=== PATIENT | male | born 2000 | race Caucasian/White ===

== ENCOUNTER 2023-08-10 10:45 | Emergency (ER) | payer SELFPAY ==
[2023-08-10 10:52] VITALS: BP 119/83; PULSE 86; RESP 20; TEMP 37.4; O2SAT 99
--- NOTE | 2023-08-10 11:31 | ED.URI ---
HPI - URI/Sore Throat General Chief Complaint: Upper Respiratory Infection Stated Complaint: needs COVID test Time Seen by Provider: 08/10/23 11:31 Source: patient, RN notes reviewed and old records reviewed Mode of arrival: ambulatory Limitations: no limitations History of Present Illness HPI Narrative: 23-year-old male who presents to [facility] with complaints of dry cough, fever 100.1F highest, sore throat since last night. Patient reports he did 2 COVID testing at home one was positive, one was negative with known exposure to COVID. Patient reports that he has not taken any OTC medications for his symptoms MD elicited complaint: cough and sore throat Onset (ago): day(s) (1) Able to tolerate fluids by mouth: Yes Treatments prior to arrival: none Related Data Allergies Allergy/AdvReac Type Severity Reaction Status Date / Time No Known Allergies Allergy Verified 08/10/23 11:01 Review of Systems Review of Systems: CONSTITUTIONAL:Reports malaise, chills, sweats, or fever. EYES: Denies visual changes, redness, or discharge. ENT: Reports rhinorrhea, congestion, no sinus pain, no otalgia and positive for sore throat. CARDIOVASCULAR: Denies chest pain, palpitations, or edema. RESPIRATORY: Reports cough.? Denies dyspnea. GASTROINTESTINAL: Denies abdominal pain, nausea, vomiting, diarrhea SKIN: Denies rash or itching. MUSCULOSKELETAL: Denies myalgia. NEUROLOGIC: Denies headache. All systems reviewed & are unremarkable except as noted in HPI and below PMFSH Surgical History Surgical History (Updated 08/11/23 @ 10:31 by Rachel Richardson NP) Hx of appendectomy Family History Family History (Updated 08/11/23 @ 10:32 by Rachel Richardson NP) Mother Alcoholism Social History Social History (Updated 08/11/23 @ 10:31 by Rachel Richardson NP) Smoking status: Current every day smoker Tobacco type: e-cigarettes/vaping Alcohol intake: never Substance use type: does not use Gender identity (if verbalized by the patient): Male Comments At time of signature, agree with nursing past medical, surgical, social and family history. There is no relevant family history pertinent to the presenting complaint Exam Narrative: GENERAL: Well-appearing, well-nourished, and in no acute distress. HEAD: Normocephalic EYES: PERRLA, conjunctivae clear ENT: Nares clear, turbinates edematous and erythematous, clear discharge. Mucous membranes moist. TM pearly wallace with dull light reflex bilaterally; no tragal tenderness. Oropharynx erythematous without lesions. Tonsils red minimally enlarged and without exudate, no drooling, no hoarseness, no trismus, uvula midline, post nasal drainage noted NECK: Supple. No lymphadenopathy CHEST: Clear to auscultation, breath sounds equal. No wheezing, rhonchi, rales, or stridor. No respiratory distress, speaks in full sentences.dry cough,SAO2 99% on room air HEART: Regular rate and rhythm. No murmur heard. SKIN: Warm, dry, no rash. NEURO: Alert and oriented x3. PSYCH: Normal mood and affect Course Course Emergency Course: Patient is aware of diagnosis, understands and agrees to treatment plan.? Anticipatory guidance given.? Patient agrees to follow-up as directed and is aware of reasons to seek care at the emergency department. Portions of this record may have been created with voice recognition software Level of Care: Express Care Visit Vital Signs Vital signs: Vital Signs Temperature 37.4 C 08/10/23 10:52 Pulse Rate 86 08/10/23 10:52 Respiratory Rate 20 08/10/23 10:52 Blood Pressure 119/83 08/10/23 10:52 Pulse Oximetry 99 08/10/23 10:52 Oxygen Delivery Room Air 08/10/23 10:52 Temperature 37.4 C 08/10/23 10:52 Pulse Rate 86 08/10/23 10:52 Respiratory Rate 20 08/10/23 10:52 Blood Pressure 119/83 08/10/23 10:52 Pulse Oximetry 99 08/10/23 10:52 Oxygen Delivery Room Air 08/10/23 10:52 Reviewed
== END 2023-08-10 11:48 | disposition home or self-care (01) ==
PROVIDERS: Emergency Provider Registered Nurse
DX: J06.9 Acute upper respiratory infection, unspecified (principal); F17.290 Nicotine dependence, other tobacco product, uncomplicated; Z20.822 Contact with and (suspected) exposure to COVID-19
CPT/HCPCS: 87081; 87426; 87804; 87880; 99213; G0463